=== PATIENT | female | born 1965 | race Caucasian/White ===

== ENCOUNTER 2016-07-10 05:47 | Day surgery (SDC) | payer OTHER ==
[2016-07-10] VITALS (12 sets, daily range): BP systolic 108–127; BP diastolic 69–86; PULSE 60–97; RESP 10–21; O2SAT 93–100
[~2016-07-10] VITALS: Ht 162.6 cm; Wt 63.4 kg
--- NOTE | 2016-07-10 02:01 | HP PRE OP ---
[address] [address] PREOPERATIVE HISTORY AND PHYSICAL PATIENT: CHARANJIT GARCIA : 1965 MR#: [id number] ADMIT: 07/10/2016 JOB ID: [id number] IDENTIFICATION: The patient is a 51-year-old, AB0, woman. CHIEF COMPLAINT: Recent menometrorrhagia with associated dysmenorrhea and pelvic pain, with increased endometrial thickness noted sonographically. For surgical investigation. HISTORY OF PRESENT ILLNESS: This patient had a normal period in March 2016. However, she developed some right-sided discomfort and then incurred a stretch from May 09, 2016, through June 02, 2016, of spotting and cramping, also with 4-5 days of rather heavy bleeding with cramping in the midst of the prolonged stitcher feeder bleeding. Once the period stopped, cramping continued in the pelvic region, greater on the right, although has gradually diminished and has become intermittent. Note that evaluation included Pap test with high-risk HPV study (both negative), transvaginal sonography with finding of 9.8 x 6.3 x 5.0 cm uterus, with 14 mm combined thickness, repeat ultrasound on June 08, 2016, demonstrating endometrial thickness up to 1.82 cm, yet also potential endometrial polyp up to 1.76 cm in length. Note that MRI also demonstrated a uterus which was described as normal, and with endometrium normal in thickness reportedly, although having been thick on ultrasounds. Left ovary was normal with small (1.5 cm) simple cyst, right ovary could not be specifically identified. DISCUSSION: I have had a thorough discussion with the patient regarding the recent significant bleeding, prolonged episode that could simply be related to an endometrial polyp if present versus contribution from hormonal fluctuations within the perimenopausal timeframe. The patient is agreeable to hysteroscopic evaluation to look for any intrauterine mass as well as excisional technique (example via MyoSure) to try to remove any polyp or other growth if present. Full endometrial and endocervical assessment will also be undertaken visually as well as via curettage. Thus, the plan is to have both diagnostic elements (intrauterine evaluation and histologic assessment) as well as to provide for potential treatment options; for example, removing polyp or other growth, etc. The patient has understood that there are risks to surgery, which include bleeding, infection, potential injury to the cervix or uterus; for example, if uterine wall perforation occurs, there could be anesthetic risks, etc. There is not a guarantee that we will find something identifiable within the uterus to surgically treated, nor is there a guarantee that with procedures as performed that we will fix her bleeding and pain problems. All questions have been answered, no guarantees were stated or implied, and the patient has signed informed consent for surgery. In summary, then, the patient will be admitted to [facility] for operative hysteroscopy via MyoSure, plus fractional D and C on July 10, 2016, hoping to remove intrauterine mass; for example, polyp, to help with bleeding and cramping symptomatologies. PHYSICAL EXAMINATION ON ADMISSION: Height 63.5 inches, weight 139 pounds, blood pressure 140/92. Neck: No thyromegaly. Lungs: Clear to auscultation and percussion. Heart: Regular in rate and rhythm. Abdomen: Nontender. No mass. No surgical scarring. Pelvic examination: Vulva, vagina, and cervix, no obvious epithelial abnormality. Uterus is somewhat tipped towards the right side. Adnexal areas and uterus are somewhat tender, mild. No obvious mass. DIAGNOSTIC DATA: Preoperative lab work report not available at the time and place of this dictation. IMPRESSION: 1. Recent menometrorrhagia with associated increased endometrial thickness noted sonographically (although more normal on MRI studies), potential for endometrial hyperplasia, endometrial polyp, submucous fibroids, or some combination. For surgical investigation and potential therapy. 2. Associated dysmenorrhea/pelvic pain, particularly right-sided, without any obvious ovarian cyst or other sonographically-visualized abnormality. Potentially simply related to the uterus which tips more towards the right side. Pain has diminished to intermittent now. 3. Suspected perimenopausal syndrome, perhaps manifest with menometrorrhagia, although no hot flashes or night sweats at this point in time. 4. Reproductive history: Vaginal delivery x2. 5. Vasectomy for contraception. 6. A 5 mm gallbladder polyp demonstrated sonographically. 7. Epigastric discomfort intermittently, omeprazole utilized when needed. 8. Oral herpes, using acyclovir p.r.n. 9. Anxiety at times, using alprazolam p.r.n. 10. No known drug allergies. PLAN: The patient is admitted to [facility] on July 10, 2016, on which day she will undergo operative hysteroscopy via MyoSure, with excision of potential intrauterine mass (polyp?), plus fractional D and C. These procedures may provide diagnostic as well as therapeutic value. TATE
[~2016-07-10 05:47] MED LIST: LORA0.5T PO; Lactated Ringer's 1,000 ML IV SCH; OMEP20TA24 PO
[2016-07-10] MEDS ORDERED: Dexamethasone 4 mg/mL Inj ONE (05:48)
[2016-07-10] MEDS ORDERED: Propofol 10,000 mCg/mL 20 mL Inj ONE (05:48)
[2016-07-10] MEDS ORDERED: Glycopyrrolate 0.2 mg/mL 5 mL Inj ONE (05:48)
[2016-07-10] MEDS ORDERED: fentaNYL-PF 50 mCg/mL 2 mL Inj ONE (05:48)
[2016-07-10] MEDS ORDERED: Ondansetron 2 mg/mL 2 mL Inj ONE (05:48)
[2016-07-10] MEDS ORDERED: CeFAZolin 2 Gm/50 mL D5W Duplex Bag IV ONE (05:57)
[2016-07-10] MEDS: Lactated Ringer's 1,000 ML IV SCH ×2 (05:59→07:28)
[2016-07-10] MEDS ORDERED: ACYC400T2 (06:09)
[2016-07-10] MEDS ORDERED: ACET325T51 PO (06:09)
[2016-07-10] MEDS ORDERED: Lactated Ringer's 500 ML IV PRN (07:22)
[2016-07-10] MEDS ORDERED: Lactated Ringer's 1,000 ML IV SCH (07:22)
--- NOTE | 2016-07-10 07:22 | PCM.HPANE ---
Patient Data Surgeon Admitting Provider: Attending Provider:Chris Garvin MD Primary Care Physician:Elba Kam Other Provider:Noe Burnham Anesthesia Reason for Visit Mennorhagia, Endometrial Thickening, Dysmenorrhea Ht/WT & BMI Height (Feet): 5 Height (Inches): 4.00 Weight (Kilograms): 63.4 Body Mass Index 23.00 Allergies Coded Allergies: No Known Allergies (Verified Allergy, Unknown, 07/09/16) Past Anesthesia History Anesthesia History: Denies:: Anesthesia Reactions Diabetes History Hx Diabetes?: No MRSA MRSA: No Medications Hypertension Medication: No Home Meds Incl Beta Misty: No Reported Medications Acyclovir 400 Mg Tablet #15 07/10/16 Acetaminophen 325 Mg [id number] Mg PO Q4H PRN For Fever Ref 0 07/10/16 Lorazepam 0.5 Mg Tablet0.5 Mg PO TID PRN For Anxiety Ref 0 07/09/16 Omeprazole Magnesium (Prilosec Otc)20 Mg Tablet.dr20 Mg PO DAILY #1 PKG Ref 0 07/09/16 History History of ENT Problems?: Yes HEENT History: Positive for:: Sinus Problem (stuffy nose) Hx of Heart Problems?: No Hx of Respiratory Problem?: No Hx Neurologic Problems?: No Hx of GI Problems?: Yes Gastrointestinal History: Positive for:: Gastroesphageal Reflux (occasional dyspepsia) Hx of Problems?: No HX of Peritoneal Dialysis: No Female Hx: Denies:: Currently Endometriosis Pelvic Inflammatory Problems with Breasts? Skin History: Denies:: History Skin Disorders? Pressure Ulcers Hx Musculoskeletal Problems?: No Hx of Psycho/Social Problems?: Yes Psycho Social History: Positive for:: Anxiety Hx Any Other Health Problems?: No Hx Diabetes: No Hx Alcohol Use: Yes (social)Hx Substance Use: No Smoking Status: Former Smoker Stop/Bang S-Snoring: Do You Snore Loudly: No T-Tired: feel tired, fatigued: No O-Obsered: Observed not breath: No P-Blood Pressure: treated: No B- Body Mass Index > 35 kg/m2: No A- Age over 50: No N- Neck Large Circumference: No G- Gender Male: No LIA Total Score: 0 LIA Risk Assessment: Low Risk, <3 Yes Risk Assessment Category Category 1A: Patient has history of documented sleep apnea, and HAS NOT received any narcotic, sedative or anesthesia administration during this stay. Category 1B: Patient has history of documented sleep apnea, and HAS received any narcotic , sedative or anesthesia administration during this stay Category 2: Patient has SUSPECTED Obstructive Sleep Apnea, and HAS received any narcotic , sedative or anesthesia administration during this stay. Category 3: Patient has SUSPECTED Obstructive Sleep Apnea and HAS NOT received narcotic, sedative or anesthesia administration during this stay. Category 4: Outpatient in Procedural Areas with known sleep apnea or who screen positive for High Risk via the STOP/BANG questionnaire. Exam Exam Vital Signs Vital Signs Date Time Temp Pulse Resp B/P Pulse Ox O2 Delivery O2 Flow Rate FiO2 07/10/16 06:42 36.0 77 16 126/81 100 Room Air 07/10/16 06:17 77 16 126/81 100 Room Air General Appearance: Alert, Oriented X3, Cooperative, No Acute Distress HEENT/AIRWAY: MP 1 Lungs: Clear to Auscultation, Normal Air Movement Heart: Exam Unremarkable, Regular Rate/Rhythm, No Murmurs/Rubs/Gallops Meds/Labs/Diagnostics Admission Meds Current Medications Lactated Ringer's (Lr) 1,000 ml @ 10 mls/hr Q24H IV Last administered on t 05:59; Start 07/10/16 at 05:00; Stop 07/14/16 at 08:59 Plan Impression Patient chart reviewed, patient interviewed and anesthestic plan with risks, benefits, and alternatives discussed, and informed consent obtained. NPO Status: 6PM ASA Physical Status: ASA2 Mod Systemic Disease Anesthetic Plan: GA Bene/Risks/Altern/Consents: Yes HP Complete Prior to Induction: Yes Fredo Taylor MD Jul 10, 2016 07:07
[2016-07-10] MEDS ORDERED: MetoCLOpramide 5 mg/mL 2 mL Inj IVPUSH PRN ×2 (07:25→08:40)
[2016-07-10] MEDS ORDERED: Ondansetron 2 mg/mL 2 mL Inj IVPUSH PRN ×2 (07:25→08:40)
[2016-07-10] MEDS ORDERED: Atropine 0.4 mg/mL Inj IVPUSH PRN (07:25)
[2016-07-10] MEDS ORDERED: hydrALAZINE 20 mg/mL Inj IVPUSH PRN (07:25)
[2016-07-10] MEDS ORDERED: Phenylephrine 10,000 mCg/mL Inj IVPUSH PRN (07:25)
[2016-07-10] MEDS ORDERED: hydrOXYzine Inj 25 MG/1 mL SDV IM PRN (07:25)
[2016-07-10] MEDS ORDERED: EPHEDrine Sulfate 50 mg/mL Inj IVPUSH PRN (07:25)
[2016-07-10] MEDS ORDERED: EPHEDrine Sulfate 50 mg/mL Inj IM PRN (07:25)
[2016-07-10] MEDS ORDERED: Labetalol 5 mg/mL 4 mL Inj IV PRN (07:25)
[2016-07-10] MEDS ORDERED: HYDROmorphone 1 mg/mL Inj IVPUSH PRN ×2 (07:25→08:40)
[2016-07-10] MEDS ORDERED: fentaNYL-PF 50 mCg/mL 2 mL Inj IVPUSH PRN (07:25)
[2016-07-10] MEDS ORDERED: oxyCODONE-Acetamin 5-325 mg Tablet PO PRN (08:40)
--- NOTE | 2016-07-10 08:50 | PCM.ANEP1 ---
Post Anesthesia Phase 1 PACU Phase 1 Assessment Vital Signs Vital Signs Date Time Temp Pulse Resp B/P Pulse Ox O2 Delivery O2 Flow Rate FiO2 07/10/16 08:45 97 21 127/84 99 Room Air 07/10/16 08:40 96 14 123/86 98 Room Air 07/10/16 08:35 92 21 108/77 97 Nasal Cannula 2 07/10/16 08:33 36.2 87 10 118/77 98 Nasal Cannula 2 07/10/16 06:42 36.0 77 16 126/81 100 Room Air 07/10/16 06:17 77 16 126/81 100 Room Air Anesthetic Administered: GA Level of Alertness: Sleepy, easy to arouse MENDEZ's with Equal Strength: Yes Pain: No Nausea or Vomiting: No Oxygen Delivery: Nasal Cannula Lungs: Clear to Auscultation, Normal Air Movement Fredo Taylor MD Jul 10, 2016 08:50
--- NOTE | 2016-07-10 08:52 | PCM.ANEP2 ---
Post Anesthesia Evaluation ASA/CMS Post Anesthesia VS in Patient's Normal Range?: Yes Resp Stable; Airway Patent?: Yes CV Function & Hydration Stable: Yes Mental Status Recovered?: Yes Pain control Satisfactory?: Yes N/V Control Satisfactory?: Yes Fredo Taylor MD Jul 10, 2016 08:52
--- NOTE | 2016-07-11 16:33 | PATH ---
SURGICAL PATHOLOGY Attending Physician:Chris Garvin M.D CASE STATUS: Signed Out PATIENT NAME: CHARANJIT GARCIA PID: [id number] : 1965 DATE COLLECTED:07/10/2016 16:56 SPECIMEN: 1: Endocervix, Curettage 2: Endometrium, Curettage 3: Endometrium, Biopsy CLINICAL HISTORY: A: ENDOCERVICAL CURETTINGS B: ENDOMETRIAL CURETTINGS C: ENDOMETRIAL BIOPSY TISSUE MENORRHAGIA, DYSMENORRHEA, AND ENDOMETRIAL THICKENING FINAL DIAGNOSIS: 1.ENDOCERVICAL CURETTINGS: ENDOCERVICAL TISSUE FRAGMENTS, NEGATIVE FOR DYSPLASIA AND MALIGNANCY. 2.ENDOMETRIAL CURETTINGS: BENIGN SECRETORY ENDOMETRIUM, NEGATIVE FOR HYPERPLASIA, ATYPIA AND NEOPLASIA. 3.ENDOMETRIAL BIOPSY TISSUE: SECRETORY ENDOMETRIUM AND MYOMETRIAL FRAGMENTS, NEGATIVE FOR HYPERPLASIA, ATYPIA AND NEOPLASIA. ICD10 CODE N92.0 N94.6 GROSS DESCRIPTION: The specimen is received in three formalin filled containers labeled with the patient's name. 1). The specimen is sublabeled "endocervical curetting" and consists of approximately a 0.75 cc aggregate of tissue, mucoid material and blood which is entirely submitted in cassette 1A. 2). The specimen is sublabeled "endometrial curettings" and consists of a 1.0 cc aggregate of tissue, mucoid material and blood which is entirely submitted in cassette 2A. 3). The specimen is sublabeled "endometrial biopsy tissue trap" and consists of multiple portions of tissue which aggregate to 3.5 x 2.0 x 0.4 CM. The specimen is entirely submitted in cassettes 3A, 3B, 3C, 3D. 07/10/2016 [facility] MICRO DESCRIPTION: See diagnosis. ICD-9 CODES: CPT CODES: 1: 73626 2: 59797 3: 94121 Electronically Signed Out Kaylee Macdonald MD [facility], [place] [address] Technical component performed at [facility], [address], [place], [address]
--- NOTE | 2016-07-12 00:13 | OP ---
[address] [address] OPERATIVE REPORT PATIENT: CHARANJIT GARCIA : 1965 MR#: [id number] ADMIT: 07/10/2016 JOB ID: [id number] DATE OF SURGERY: 07/10/2016 SURGEON: Chris Garvin MD. ANESTHESIA: General. PREOPERATIVE DIAGNOSIS(ES): 1. Menometrorrhagia. 2. Dysmenorrhea. 3. Increased endometrial thickness, rule out polyp. POSTOPERATIVE DIAGNOSIS(ES): 1. Menometrorrhagia. 2. Dysmenorrhea. 3. Increased endometrial thickness, with polypoid endometrium, yet no classic polyp. PROCEDURES PERFORMED: 1. Operative hysteroscopy. 2. Hysteroscopic endometrial biopsy. 3. Fractional dilation and curettage. FINDINGS AT SURGERY: Uterus sounded to 8.5 cm. Upon hysteroscopic assessment, there was no endometrial polyp, although there was polypoid thickened endometrium. Both cornual areas were seen. There was no obvious submucosal fibroid. At procedure's close, excellent hysteroscopic evaluation had been accomplished, and polypoid endometrium had been very well sampled per operative hysteroscope (MyoSure technique) followed by broader endometrial and endocervical curettage. There was minimal bleeding during the case and essentially no bleeding at procedure's close. We anticipate that patient will do very well during the postoperative timeframe. We will follow up pathology report to ensure that endometrium is negative. PROCEDURE IN DETAIL: Patient was placed in supine position on the operating table and general anesthesia was induced. She was then very carefully repositioned in the low dorsal lithotomy position and prepped and draped in the usual sterile manner. Appropriate time-out was taken. Weighted speculum was placed posteriorly and a tenaculum on the anterior cervical lip and the uterus was sounded. Cervix was then dilated up to 6 mm and the 6 mm hysteroscope was introduced. Hysteroscopic (via MyoSure) visualization was accomplished with findings as noted above. There were no definitive findings suggestive of malignancy and no distinct endometrial polyp, although there was polypoid thickened endometrium. Thickened areas were thoroughly sampled using the MyoSure apparatus, followed by endometrial curettage broadly, as well as endocervical curettage. All instruments were then removed from the cervix and uterus, and instrument and sponge counts were all found to be correct. The patient is returned to supine position and taken to recovery room. ESTIMATED BLOOD LOSS: Less than 10 cc. COMPLICATIONS: None. PROGNOSIS: Good for surgical recovery.
== END 2016-07-10 23:59 | disposition home or self-care (01) ==
LOC: SAS 05:47
PROVIDERS: ATTEND Obstetrics & Gynecology
DX: N92.1 Excessive and frequent menstruation with irregular cycle (principal); N94.6 Dysmenorrhea, unspecified; R93.8 Abnormal findings on diagnostic imaging of other specified body structures; B00.9 Herpesviral infection, unspecified
CPT/HCPCS: 58558; J1100; J2175; J2250; J2405; J7120